=== PATIENT | male | born 1945 | race Caucasian/White ===

== ENCOUNTER 2022-08-05 06:54 | Outpatient (CLI) | payer MEDICARE, SELFPAY ==
--- NOTE | ~2022-08-05 | NM_ITS ---
EXAMINATION: NM bone scan whole body DATE: 08/05/2022 10:27 INDICATION: Prostate cancer TECHNIQUE: 23.6 mCi Tc-99m HDP was administered intravenously. Delayed whole-body scintigrams were o btained. COMPARISON: CT abdomen and pelvis dated 08/05/2022 and bone scan dated 08/11/2019 FINDINGS: No significant change in a typical distribution of joint centered uptake at the bilateral acromioclav icular joints, bilateral wrists and radial aspect of the carpi, left mid/hindfoot and bilateral lower lumbar facet joints. Additional likely discogenic linear increased uptake extending horizontally at the level of T8-T9. Mild lumbar levoscoliosis. No bone lesions suspicious for metastatic disease. IMPRESSION: 1. No evident metastatic disease. Reviewed, dictated and finalized at location A.
--- NOTE | ~2022-08-05 | CT_ITS ---
EXAMINATION: CT abdomen pelvis w con INDICATION: Prostate cancer TECHNIQUE: Computed tomographic images of the abdomen and pelvis were obtained after the administrati on of 100 cc of Omnipaque 350 intravenous contrast. The dose-length product (DLP) was 172.03 mGy-cm. Automated exposure control and iterative reconstruction technique were employed. COMPARISON: 08/11/2019 FINDINGS: Minimal dependent atelectasis is present in the lung bases. The heart size is normal. The l iver is diffusely low in attenuation when compared with the spleen, consistent with hepatic steatosis . The spleen, gallbladder, and adrenal glands are normal. Punctate calcification of the pancreas may reflect chronic pancreatitis. The kidneys are unremarkable. No pathologically enlarged abdominal or p elvic lymph nodes are identified. There is no free intraperitoneal gas or evidence of bowel obstructi on. There is formed stool in nondistended loops of small bowel, consistent with slow transit. The jaleesa endix is normal. A large volume of colonic stool is present. Brachytherapy seeds are noted in the pro state. There is wall thickening of the urinary bladder. Moderate lumbar spondylosis is noted. IMPRESSION: 1. No evidence of metastatic disease. 2. Wall thickening of the urinary bladder which could reflect cystitis versus chronic outlet obstruct ion. Reviewed, dictated and finalized at location A. IMPRESSION: 1. No evidence of metastatic disease. 2. Wall thickening of the urinary bladder which could reflect cystitis versus c hronic outlet obstruction.
[2022-08-05 07:21] LABS: Estimated Glomerular Filt Rate > 60
== END 2022-08-05 06:55 | disposition home or self-care (01) ==
PROVIDERS: PCP Physician Assistant Medical; Visit Provider Urology
DX: C61 Malignant neoplasm of prostate (principal)
CPT/HCPCS: 74177; 78306; A9561; Q9967